=== PATIENT | male | born 1970 | race Caucasian/White ===

== ENCOUNTER 2018-12-07 12:22 | Emergency (ER) | payer MEDICAID ==
[~2018-12-07] VITALS: Ht 180.3 cm; Wt 81.8 kg
[2018-12-07 12:53] VITALS: BP 124/80; Ht 180.3 cm; Wt 81.8 kg
[2018-12-07] MEDS ORDERED: KEFLEX500 MG PO (16:58)
== END 2018-12-07 17:00 | disposition home or self-care (01) ==
LOC: D.ER 12:22
DX: S61.011A Laceration without foreign body of right thumb without damage to nail, initial encounter (principal); W26.8XXA Contact with other sharp object(s), not elsewhere classified, initial encounter; Y93.89 Activity, other specified; Y92.89 Other specified places as the place of occurrence of the external cause